=== PATIENT | female | born 1975 | race Caucasian/White ===

== ENCOUNTER 2020-06-01 13:18 | Outpatient (REF) | payer OTHER, SELFPAY ==
[2020-06-01 16:40] LABS: MANUAL DIFF FLAG NO
[2020-06-01 16:46] LABS: Basophils Absolute Auto 0.1 X10*3/uL (0.0-0.2); Basophils Percent Auto 0.4 % (0-2); Eosinophils Absolute Auto 0.4 X10*3/uL (0.0-0.4); Eosinophils Percent Auto 2.7 % (0-4); Hematocrit 39.7 % (37-47); Hemoglobin 12.3 g/dl (12.0-16.0); Imm Gran Abs Auto 0.14 X10*3/uL (0.00-0.03); Lymphocytes Absolute Auto 3.6 X10*3/uL (1.2-4.9); Lymphocytes Percent Auto 24.5 % (20-40); Mean Corpuscular Hemoglobin 25.7 pg (27.0-33.0); Mean Corpuscular Volume 83.1 fL (80-98); Mean Platelet Volume 9.4 fL (9.4-12.3); Monocytes Absolute Auto 0.9 X10*3/uL (0.1-1.2); Monocytes Percent Auto 6.4 % (2-11); Neutrophils Absolute Auto 9.5 X10*3/uL (2.0-8.3); Platelet Count 501 X10*3/uL (160-400); Red Blood Count 4.78 X10*6/uL (4.20-5.50); Red Cell Distribution Width 14.7 % (11.0-16.0); White Blood Count 14.6 X10*3/uL (4.8-10.8)
[2020-06-01 17:06] LABS: Alanine Aminotransferase 17 U/L (0-31); Anion Gap 15 (12-20); Aspartate Amino Transferase 19 U/L (5-31); Blood Urea Nitrogen 14 mg/dL (9-16); Calcium 9.6 mg/dL (8.4-10.2); Carbon Dioxide 27 mmol/L (22-29); Chloride 101 mmol/L (96-108); Cholesterol 205 mg/dL; Estimated Glomerular Filt Rate > 60; Glucose Fasting 85 mg/dL (60-99); HDL Cholesterol 54 mg/dL; LDL Cholesterol Calculated 114 mg/dl; Potassium 4.8 mmol/L (3.3-5.1); Sodium 138 mmol/L (135-145); Triglycerides 187 mg/dL
[2020-06-01 17:28] LABS: TSH reflex Free T4 1.56 uIU/mL (0.32-4.0)
== END 2020-06-01 13:19 | disposition home or self-care (01) ==
LOC: HO.HMGCLDS 13:18
PROVIDERS: PCP Internal Medicine; Visit Provider Internal Medicine
DX: G43.009 Migraine without aura, not intractable, without status migrainosus (principal); Z00.01 Encounter for general adult medical examination with abnormal findings; E78.2 Mixed hyperlipidemia; E66.01 Morbid (severe) obesity due to excess calories; F33.1 Major depressive disorder, recurrent, moderate; I10 Essential (primary) hypertension
CPT/HCPCS: 36415; 80048; 80061; 84443; 84450; 84460; 85025

== ENCOUNTER 2020-06-24 13:04 | Outpatient (REF) | payer OTHER, SELFPAY ==
--- NOTE | ~2020-06-24 | MM_ITS ---
EXAMINATION: MM SCREENING DIGITAL BREAST TOMOSYNTHESIS, BILATERAL CLINICAL INFORMATION: Screening. Asymptomatic. The lifetime risk of breast cancer based on the Tyrer-Cuzick Model is 18%. COMPARISON: Mammography: 08/08/2013, 05/14/2012 TECHNIQUE: Digital breast tomosynthesis is performed in both the craniocaudal and mediolateral oblique views along with computer-aided detection (CAD). Synthesized 2D images are generated from the tomosynthesis. FINDINGS: The breasts are heterogeneously dense, which may obscure small masses (ACR BI-RADS breast composition Category c). Breast tissue composition borders on average fibroglandular. Parenchymal pattern is similar to remote prior studies. There is no developing density or interval mass or architectural abnormality. No abnormal calcifications. The skin contours are smooth. MM/MM tomosynthesis screening BI IMPRESSION: No mammographic evidence of malignancy. ASSESSMENT: BI-RADS 1: Negative RECOMMENDATION: Routine annual mammography screening. This patient's information was entered into a reminder system with a target due date for their next mammogram.
== END 2020-06-24 13:05 | disposition home or self-care (01) ==
LOC: HO.MAMMO 13:04
PROVIDERS: PCP Internal Medicine; Visit Provider Internal Medicine
DX: Z12.31 Encounter for screening mammogram for malignant neoplasm of breast (principal)
CPT/HCPCS: 77063; 77067

== ENCOUNTER 2021-11-22 12:23 | Outpatient (REF) | payer OTHER, SELFPAY ==
--- NOTE | ~2021-11-22 | MM_ITS ---
EXAMINATION: MM SCREENING DIGITAL BREAST TOMOSYNTHESIS, BILATERAL CLINICAL INFORMATION: Screening. Asymptomatic. The lifetime risk of breast cancer based on the Tyrer-Cuzick Model is 15%. COMPARISON: Mammography: 06/24/2020, 08/08/2013 TECHNIQUE: Digital breast tomosynthesis is performed in both the craniocaudal and mediolateral oblique views along with computer-aided detection (CAD). Synthesized 2D images are generated from the tomosynthesis. FINDINGS: The breasts are heterogeneously dense, which may obscure small masses (ACR BI-RADS breast composition Category c). There are no significant masses, abnormal calcifications, or other abnormalities. Parenchymal pattern is similar to prior studies. There is no developing density or architectural abnormality. The axilla and skin contours are unremarkable. No significant changes. MM/MM tomosynthesis screening BI IMPRESSION: No mammographic evidence of malignancy. ASSESSMENT: BI-RADS 1: Negative RECOMMENDATION: Routine annual mammography screening. This patient's information was entered into a reminder system with a target due date for their next mammogram.
== END 2021-11-22 12:24 | disposition home or self-care (01) ==
LOC: HO.MAMMO 12:23
PROVIDERS: PCP Internal Medicine; Visit Provider Internal Medicine
DX: Z12.31 Encounter for screening mammogram for malignant neoplasm of breast (principal)
CPT/HCPCS: 77063; 77067

== ENCOUNTER 2022-04-20 13:11 | Outpatient (REF) | payer OTHER, SELFPAY ==
[2022-04-20 14:50] LABS: Alanine Aminotransferase 31 U/L (0-31); Anion Gap 13 (12-20); Aspartate Amino Transferase 30 U/L (5-31); Blood Urea Nitrogen 11 mg/dL (9-16); Calcium 9.5 mg/dL (8.4-10.2); Carbon Dioxide 28 mmol/L (22-29); Chloride 101 mmol/L (96-108); Cholesterol 230 mg/dL; Estimated Glomerular Filt Rate > 60; Glucose Fasting 89 mg/dL (60-99); HDL Cholesterol 43 mg/dL; LDL Cholesterol Calculated 123 mg/dl; Potassium 4.3 mmol/L (3.3-5.1); Sodium 138 mmol/L (135-145); Triglycerides 322 mg/dL
[2022-04-20 14:55] LABS: Vitamin D 25-OH Total 28.2 ng/mL (>30)
== END 2022-04-20 13:12 | disposition home or self-care (01) ==
LOC: HO.HMGCLDS 13:11
PROVIDERS: Visit Provider Internal Medicine
DX: Z00.01 Encounter for general adult medical examination with abnormal findings (principal); E66.01 Morbid (severe) obesity due to excess calories; F33.1 Major depressive disorder, recurrent, moderate; G43.009 Migraine without aura, not intractable, without status migrainosus; E78.2 Mixed hyperlipidemia; E55.9 Vitamin D deficiency, unspecified
CPT/HCPCS: 36415; 80048; 80061; 82306; 84450; 84460

== ENCOUNTER 2022-05-18 14:05 | Outpatient (REF) | payer OTHER, SELFPAY ==
[2022-05-23 04:08] LABS: HPV mRNA E6/E7 rflx Not Detected (Not Detected)
== END 2022-05-18 14:06 | disposition home or self-care (01) ==
LOC: HO.LNP 14:05
PROVIDERS: Visit Provider Internal Medicine
DX: Z12.4 Encounter for screening for malignant neoplasm of cervix (principal); Z11.51 Encounter for screening for human papillomavirus (HPV)
CPT/HCPCS: 87624; 88142

== ENCOUNTER 2022-11-14 11:09 | Outpatient (REF) | payer OTHER, SELFPAY ==
[2022-11-14 13:38] LABS: Alanine Aminotransferase 26 U/L (0-31); Aspartate Amino Transferase 27 U/L (5-31); Cholesterol 188 mg/dL (<200); HDL Cholesterol 41 mg/dL (>40); LDL Cholesterol Calculated 119 mg/dL (<100); Triglycerides 140 mg/dL (<150)
[2022-11-14 13:43] LABS: Vitamin D 25-OH Total 66.1 ng/mL (>30)
== END 2022-11-14 11:10 | disposition home or self-care (01) ==
LOC: HO.HMGCLDS 11:09
PROVIDERS: PCP Internal Medicine; Visit Provider Internal Medicine
DX: E78.2 Mixed hyperlipidemia (principal); E55.9 Vitamin D deficiency, unspecified
CPT/HCPCS: 36415; 80061; 82306; 84450; 84460

== ENCOUNTER 2022-11-16 10:53 | Outpatient (AMB) | payer OTHER, SELFPAY ==
[2022-11-16 10:55] VITALS: BP 130/72; PULSE 90; O2SAT 97; BMI 42.8
--- NOTE | 2022-11-16 10:55 | A.OFFPC_ITS ---
Vital Signs 11/16/22 10:55 Height 5 ft 2 in Weight 234 lb BMI 42.8 BP 130/72 Blood Pressure Location Lt brachial Position Sitting Pulse 90 Pulse Source Pulse Oximeter Pulse Oximetry (%) 97 Oxygen Delivery Method Room Air Intake Visit Reasons: 6m f/u lipids, vit d, anxiety/depression Intake Note: patient is here today for her 6m f/u Allergies Sulfa (Sulfonamide Antibiotics) Allergy (Unknown, Verified 11/16/22 11:09) unknown trimethoprim [From BACTRIM] Allergy (Unknown, Verified 11/16/22 11:09) UNKNOWN Medication List - Last Reconciled 11/16/22 by Neelam Tom MD atorvastatin 10 mg PO DAILY buspirone 5 mg PO BID cholecalciferol (vitamin D3) 1,250 mcg PO QWEEK 3 months fluoxetine 20 mg PO DAILY lorazepam 0.5 mg PO DAILY PRN naproxen sodium 550 mg PO Q12H PRN omega-3 acid ethyl esters (Lovaza) 2 caps PO BID 30 days quetiapine 50 mg PO BEDTIME sumatriptan succinate 50 mg PO ONCE PRN Tobacco use date assessed: 11/16/22 Dental Screening Dental Screen Date: 11/16/22 Did you have a dental visit in the last 12 months?: Yes Did you have a dental problem in the last 6 months where you did not have access to dental care?: No Was dental information given to patient?: Patient has dentist HPI 6m f/u lipids, vit d, anxiety/depression HPI Details 46-year-old lady here today for follow-u p on her lipids and vitamin-D level. He has been taking atorvastatin 10 mg daily and added Lovaza 2 capsules twice a day, with marked improvement in her triglycerides and the rest of her lipid levels. And vitamin-D is also within normal limits, after she was prescribed vitamin-D high-dose for to be taken once a week for the next 3 months. She has depression with anxiety, currently on as needed lorazepam, which she usually takes a week prior to her cycle, started on buspirone 5 mg taken 1 tablet twice a day and fluoxetine 20 mg daily which she feels is not enough of stress in her life right now taking care of her mother who has a lot of health issues. She recently joined the [employer] for weight loss right,[facility] in [place] and currently on Mounjaro, which she started taking 08/28/2022. Has lost approximately 12 lb since last visit. Patient up-to-date with her mammogram and cervical cancer screening, as well as her colonoscopy. Had recent fasting labs done which showed marked improvement in her lipids, vitamin-D now within normal limits. Complains of recurrent tender lesions appearing on axillary areas and suprapubic area, [facility] Medical History Suppurative hidradenitis Chronic heartburn Anxiety and depression Vulval hidradenitis suppurativa Major depressive disorder, recurrent, in partial remission Cystic acne vulgaris Furunculosis of abdominal wall Intermittent lightheadedness Sleeping difficulty Excessive daytime sleepiness Morbid obesity Migraine Mixed dyslipidemia Surgical History History of appendectomy Family History Father Diabetes mellitus Bladder cancer HTN (hypertension) Mother Lung cancer HTN (hypertension) Brother No problems noted. Maternal Grandmother Lung cancer Breast cancer Paternal Grandmother Lung cancer Social History Housing: House Alcohol intake: current Patient Tobacco Use Status: Never used Tobacco e-Cigarette/Vaping Use: Never Used Second Hand Smoke Exposure: Yes service: No Current occupational status: employed Cognitive needs: No Hearing needs: No Vision needs: No Questionnaire Thrive Questionnaire Date Thrive assessed: 04/25/21 AUDIT C Alcohol Use Questionnaire (AUDIT-C) 1. How often do you have a drink containing alcohol?: Never Total Score: 0 KIP-7 AMB Questionnaire KIP-7 Date KIP - 7 assessed: 11/16/22 Feeling nervous, anxious, or on edge: 1 = Several days Not being able to stop or control worryin = Several days Worrying too much about different things: 1 = Several days Trouble relaxin = Several days Being so restless that it is hard to sit still: 0 = Not at all Becoming easily annoyed or irritable: 0 = Not at all Feeling afraid as if something awful might happen: 0 = Not at all Total KIP-7 score (0-4 normal; 5-9 mild; 10-14 moderate; 15-21 severe): 4 Source: Developed by Drs. Anatoly Tijerina, Tracey Faust, Vaibhav Butler and colleagues, with an educational savannah from [email or web address]. KIP-7 Assessment Billing KIP-7 Assessment Tool: KIP-7 Assessment 19394 Review of Systems Const Denies headache(s), Denies weakness and Reports weight loss Eyes Reports no additional complaints and Denies change in vision ENT Denies dysphagia, Denies dizziness, Denies dry mouth, Denies headache(s), Denies nasal congestion, Denies post nasal drip and Denies sore throat Card Denies chest pain, Denies irregular heart rhythm, Denies lightheadedness and Denies dyspnea Resp Denies cough, Denies dyspnea and Denies wheezing GI Denies abdominal pain, Denies change in bowel habits, Denies dysphagia, Denies heartburn and Denies nausea Reports no additional complaints and Reports dysmenorrhea (takes naproxen prn) Musc Denies abnormal gait and Denies tingling Skin/Breast Reports as per HPI, Denies breast pain, Denies breast mass and Denies rash Neuro Denies abnormal gait, Denies dizziness, Denies headache(s), Denies Sensory deficit (Neuro), Denies tingling and Denies weakness Psych Reports as per HPI Endo Reports no additional complaints Carlos/Lymph Reports no additional complaints Aller/Immun Denies seasonal rhinorrhea and Denies wheezing Physical exam (Primary Care) Vital Signs: Last Vital Signs Pulse 90 11/16/22 10:55 BP 130/72 11/16/22 10:55 Pulse Ox 97 11/16/22 10:55 Oxygen Delivery Method Room Air 11/16/22 10:55 BMI result Body Mass Index 42.8 Tobacco/Smoking Status: Tobacco use Status Tobacco use date assessed 11/16/22 11/16/22 10:58 Patient Tobacco Use Status Never used Tobacco 11/16/22 10:58 e-Cigarette/Vaping Use Never Used 11/16/22 10:58 Thrive Assessment: Date of Thrive Assessment Date Thrive assessed 04/25/21 11/16/22 10:58 Const General: cooperative, comfortable, no acute distress and alert Limitations: no limitations HENMT Mouth: moist mucous membranes Neck Other: Supple, no lymphadenopathy, thyroid gland not palpable Resp Effort & Inspection: normal respiratory effort and able to speak in complete sentences Auscultation: clear to auscultation bilaterally Cardio Rate: regular rate Rhythm: regular rhythm Heart sounds: S1 normal heart sound present and S2 normal heart sound present GI Inspection: Yes normal to inspection Palpation (GI): Soft to palpation, nontender, no guarding and no masses Auscultation: normal bowel sounds Back/Spine/Pelvis Back: No back tenderness Skin Other: Tender nodular lesions on axilla not want the right and erythematous nodular lesion on suprapubic area, no active drainage Neuro Sensory Exam: No Sensory deficit (Neuro) Extrem General: Yes full ROM, Yes no joint enlargement, Yes no pedal edema and Yes normal gait Psych Appearance: grossly normal and well kempt Mental Status: mental status grossly normal Speech and movement: Normal speech and movement present Affect: normal affect Attitude: cooperative Thought process: Normal thought process present Thought content: Normal thought content present Results Reviewed Results Reviewed: ENTERED: 11/14/22-[address]: ORDERED: AST, ALT, Lipid Panel, Vitamin D 25-OH Test Result Flag Reference Site AST (GOT) 27 5-31 U/L ALT (GPT) 26 0-31 U/L Triglyceride 140 <150 mg/dL Desirable Triglyceride: less than 150 mg/dL Borderline High Triglyceride 150-199 mg/dL High Triglyceride: 200-499 mg/dL Very High Triglyceride: greater than or equal to 5OO mg/dL Cholesterol 188 <200 mg/dL Desirable Cholesterol: less than 200 mg/dL Borderline High Cholesterol: 200-239 mg/dL High Cholesterol: greater than 239 mg/dL LDL Calculated 119 H <100 mg/dL Desirable LDL: less than 100 mg/dL Near Optimal/Above Optimal LDL: 110-129 mg/dL Borderline High LDL: 130-159 mg/dL High LDL: 160-189 mg/dL Very High LDL: greater than or equal to 190 mg/dL HDL 41 >40 mg/dL Desirable HDL: greater than 40 mg/dL Note: This HDL assay may give artificially low results in patients with liver disease. Vit D 25-OH Tot 66.1 >30 ng/mL Health Based Reference Values* < 20 ng/mL Deficient 20-30 ng/mL Insufficient > 30 ng/mL Sufficient Assessment and Plan Assessment & Plan (1) Suppurative hidradenitis: Code(s): L73.2 - Hidradenitis suppurativa Plan: Prescription sent for doxycycline 100 mg per capsule to take 1 every 12 hours for 10 days. Referred to dermatology for further evaluation management (2) Anxiety and depression: Code(s): F41.9 - Anxiety disorder, unspecified; F32.A - Depression, unspecified Plan: Increase buspirone to 10 mg 1 tab twice a day, refill sent for lorazepam to take only as needed for acute anxiety attacks, continue with fluoxetine, follow-up in January 2023 (3) Mixed dyslipidemia: Code(s): E78.2 - Mixed hyperlipidemia Plan: Marked improvement in her lipid panel. Continue on atorvastatin, currently on Mounjaro, which has been helping curb her appetite. Advised to continue doing regular exercise, to continue with weight loss. Repeat lipid panel in January 2023 together with liver enzymes. Orders: Orders Lipid Panel 01/19/23 E66.01 - Morbid (severe) obesity due to excess calories, E78.2 - Mixed hyperlipidemia, F32.A - Depression, unspecified, F41.9 - Anxiety disorder, unspecified, L73.2 - Hidradenitis suppurativa Alanine Aminotransferase 01/19/23 E66.01 - Morbid (severe) obesity due to excess calories, E78.2 - Mixed hyperlipidemia, F32.A - Depression, unspecified, F41.9 - Anxiety disorder, unspecified, L73.2 - Hidradenitis suppurativa Aspartate Amino Transferase 01/19/23 E66.01 - Morbid (severe) obesity due to excess calories, E78.2 - Mixed hyperlipidemia, F32.A - Depression, unspecified, F41.9 - Anxiety disorder, unspecified, L73.2 - Hidradenitis suppurativa Vitamin D 25-OH Total 01/19/23 E66.01 - Morbid (severe) obesity due to excess calories, E78.2 - Mixed hyperlipidemia, F32.A - Depression, unspecified, F41.9 - Anxiety disorder, unspecified, L73.2 - Hidradenitis suppurativa Basic Metabolic Panel Fasting 01/19/23 E66.01 - Morbid (severe) obesity due to excess calories, E78.2 - Mixed hyperlipidemia, F32.A - Depression, unspecified, F41.9 - Anxiety disorder, unspecified, L73.2 - Hidradenitis suppurativa Referrals Dermatology Referral L73.2 - Hidradenitis suppurativa Medications: New doxycycline hyclate 100 mg PO BID 10 days 20 caps 0RF L73.2 - Hidradenitis suppurativa Changed From buspirone 5 mg PO BID 60 tabs 5RF F32.A - Depression, unspecified, F41.9 - Anxiety disorder, unspecified To buspirone 5 mg (1/2 x 10 mg) PO BID 20 tabs 5RF F32.A - Depression, unspecified, F41.9 - Anxiety disorder, unspecified Refilled lorazepam 0.5 mg PO DAILY PRN 20 tabs 0RF anxiety Coding Level of Care Code Est Pt Level 4 (31427) Diagnoses Suppurative hidradenitis L73.2 Anxiety and depression F41.9; F32.A Mixed dyslipidemia E78.2 Additional Codes KIP-7 Assessment Billing - KIP-7 Assessment Tool: KIP-7 Assessment 56733 ([id number])
== END 2022-11-16 11:31 | disposition home or self-care (01) ==
PROVIDERS: Visit Provider Internal Medicine
DX: L73.2 Hidradenitis suppurativa (principal); F41.9 Anxiety disorder, unspecified; F32.A Depression, unspecified; E78.2 Mixed hyperlipidemia
CPT/HCPCS: 99214

== ENCOUNTER → 2023-01-03 15:15 | Outpatient (BNV) | payer OTHER, SELFPAY | PROVIDERS: PCP Internal Medicine; Visit Provider Radiology Diagnostic Radiology | DX: Z12.31 Encounter for screening mammogram for malignant neoplasm of breast (principal) | CPT/HCPCS: 77063; 77067 ==

== ENCOUNTER 2023-01-03 15:17 | Outpatient (REF) | payer OTHER, SELFPAY ==
--- NOTE | ~2023-01-03 | MM_ITS ---
EXAMINATION: MM SCREENING DIGITAL BREAST TOMOSYNTHESIS, BILATERAL CLINICAL INFORMATION: Screening. Asymptomatic. COMPARISON: Mammography: This study is compared with prior exams dating back to 2013. TECHNIQUE: Digital breast tomosynthesis is performed in both the craniocaudal and mediolateral oblique views along with computer-aided detection (CAD). Synthesized 2D images are generated from the tomosynthesis. FINDINGS: The breasts are heterogeneously dense, which may obscure small masses (ACR BI-RADS breast composition Category c). There are no significant masses, abnormal calcifications, or other abnormalities. MM/MM tomosynthesis screening BI IMPRESSION: No mammographic evidence of malignancy. ASSESSMENT: BI-RADS BI-RADS 1 - Negative RECOMMENDATION: Routine annual mammography screening. 1 year F/U This examination should not preclude the clinical evaluation of a suspicious palpable abnormality. This patient's information was entered into a reminder system with a target due date for their next mammogram.
== END 2023-01-03 15:18 | disposition home or self-care (01) ==
LOC: HO.MAMMO 15:17
PROVIDERS: PCP Internal Medicine; Visit Provider Internal Medicine
DX: Z12.31 Encounter for screening mammogram for malignant neoplasm of breast (principal)
CPT/HCPCS: 77063; 77067

== ENCOUNTER 2023-03-12 15:03 | Outpatient (REF) | payer OTHER, SELFPAY ==
[2023-03-12 16:53] LABS: Alanine Aminotransferase 23 U/L (0-31); Anion Gap 16 (12-20); Aspartate Amino Transferase 18 U/L (5-31); Blood Urea Nitrogen 13 mg/dL (9-16); Calcium 9.3 mg/dL (8.4-10.2); Carbon Dioxide 25 mmol/L (22-29); Chloride 105 mmol/L (96-108); Cholesterol 196 mg/dL (<200); Estimated Glomerular Filt Rate > 60; Glucose Fasting 86 mg/dL (60-99); HDL Cholesterol 43 mg/dL (>40); LDL Cholesterol Calculated 120 mg/dL (<100); Potassium 4.5 mmol/L (3.3-5.1); Sodium 141 mmol/L (135-145); Triglycerides 168 mg/dL (<150)
[2023-03-12 17:00] LABS: Vitamin D 25-OH Total 59.3 ng/mL (>30)
== END 2023-03-12 15:04 | disposition home or self-care (01) ==
LOC: HO.HMGCLDS 15:03
PROVIDERS: PCP Internal Medicine; Visit Provider Internal Medicine
DX: L73.2 Hidradenitis suppurativa (principal); E66.01 Morbid (severe) obesity due to excess calories; E78.2 Mixed hyperlipidemia; F41.9 Anxiety disorder, unspecified; F32.A Depression, unspecified
CPT/HCPCS: 36415; 80048; 80061; 82306; 84450; 84460

== ENCOUNTER 2023-03-22 13:34 | Outpatient (AMB) | payer OTHER, SELFPAY ==
[2023-03-22 13:40] VITALS: BP 122/74; PULSE 83; O2SAT 98; BMI 41.5
--- NOTE | 2023-03-22 13:40 | A.OFFPC_ITS ---
Vital Signs 03/22/23 13:40 Height 5 ft 2 in Weight 227 lb BMI 41.5 BP 122/74 Blood Pressure Location Lt brachial Position Sitting Pulse 83 Pulse Source Pulse Oximeter Pulse Oximetry (%) 98 Oxygen Delivery Method Room Air Intake Visit Reasons: 3M. F/U- Lipids/Anxiety/Depression Intake Note: Pt is here today for her f/u lipids, anxiety and depression Allergies Sulfa (Sulfonamide Antibiotics) Allergy (Unknown, Verified 03/22/23 13:51) unknown trimethoprim [From BACTRIM] Allergy (Unknown, Verified 03/22/23 13:51) UNKNOWN Medication List - Last Reconciled 03/22/23 by Neelam Tom MD atorvastatin 10 mg PO DAILY buspirone 10 mg PO BID cholecalciferol (vitamin D3) 1,250 mcg PO QWEEK 3 months fluoxetine 20 mg PO DAILY lorazepam 0.5 mg PO DAILY PRN naproxen sodium 550 mg PO Q12H PRN omega-3 acid ethyl esters (Lovaza) 2 caps PO BID 30 days quetiapine 50 mg PO BEDTIME sumatriptan succinate 50 mg PO ONCE PRN tirzepatide (Mounjaro) 5 mg subcut QWEEK Tobacco use date assessed: 03/22/23 Dental Screening Dental Screen Date: 03/22/23 Did you have a dental visit in the last 12 months?: Yes Did you have a dental problem in the last 6 months where you did not have access to dental care?: No Was dental information given to patient?: Patient has dentist HPI 3M. F/U- Lipids/Anxiety/Depression HPI Details 47-year-old lady here today for follow-u p on her hyperlipidemia and anxiety/ depression. Currently taking atorvastatin 10 mg daily, fluoxetine 20 mg daily, buspirone 10 mg 1 tablet twice a day, quetiapine 50 mg at bedtime and lorazepam as needed for acute attacks of anxiety. Has been feeling well, with mood swings controlled on present treatment. Currently getting weekly injections of Mounjaro , which she gets from [employer], for weight loss. Patient states that she has lost about 25 lb in the last 6 month. Denies any side effects from the medication. Complains of painful nodular lesions in her left axillary, no drainage, present for the last week.. [facility] Medical History (Updated 03/23/23 @ 03:18 by Neelam Tom MD) Chronic heartburn Anxiety and depression Vulval hidradenitis suppurativa Major depressive disorder, recurrent, in partial remission Cystic acne vulgaris Furunculosis of abdominal wall Intermittent lightheadedness Sleeping difficulty Excessive daytime sleepiness Morbid obesity Migraine Mixed dyslipidemia Surgical History History of appendectomy Family History Father Diabetes mellitus Bladder cancer HTN (hypertension) Mother Lung cancer HTN (hypertension) Brother No problems noted. Maternal Grandmother Lung cancer Breast cancer Paternal Grandmother Lung cancer Social History Housing: House Alcohol intake: current Patient Tobacco Use Status: Never used Tobacco e-Cigarette/Vaping Use: Never Used Second Hand Smoke Exposure: Yes service: No Current occupational status: employed Cognitive needs: No Hearing needs: No Vision needs: Yes Questionnaire PHQ-9 Over the last 2 weeks, how often have you been bothered by any of the following problems? 1. Little interest or pleasure in doing things: not at all 2. Feeling down, depressed, or hopeless: not at all 3. Trouble falling or staying asleep, or sleeping too much: not at all 4. Feeling tired or having little energy: not at all 5. Poor appetite or overeating: not at all 6. Feeling bad about yourself - or that you are a failure or have let yourself or your family down: not at all 7. Trouble concentrating on things, such as reading the newspaper or watching television: not at all 8. Moving or speaking so slowly that other people could have noticed. Or the opposite - being so fidgety or restless that you have been moving around a lot more than usual: not at all 9. Thoughts that you would be better off or of hurting yourself in some way: not at all Total score: 0 Depression Screening Interpretation: Negative Depression Screening Done: Yes 55732 - PHQ-9 Billing: Yes Source: Developed by Drs. Anatoly Tijerina, Tracey Faust, Vaibhav Butler and colleagues, with an educational savannah from [employer]. Thrive Questionnaire Date Thrive assessed: 03/22/23 I am a: Patient What is your living situation today?: I have a steady place to live Within the past 12 months, did the food you bought not last and you didn't have the money to get more?: Never true Within the past 12 months, did you worry whether your food would run out before you got money to buy more?: Never true Do you have trouble paying for medicines?: No Do you have trouble getting transportation to medical appointments?: No Do you have trouble paying your heating and electricity bill?: No Do you have trouble taking care of your child, family member or friend?: No Do you have trouble with day-to-day activities such as bathing, preparing meals, shopping, managing finances, etc.?: No Are you currently unemployed and looking for a job?: No Are you interested in more education?: No THRIVE Score: 0 AUDIT C Alcohol Use Questionnaire (AUDIT-C) 1. How often do you have a drink containing alcohol?: Monthly or less 2. How many drinks containing alcohol do you have on a typical day when you are drinking?: 1 or 2 3. How often do you have six or more drinks on one occasion?: Never Total Score: 1 KIP-7 AMB Questionnaire KIP-7 Date KIP - 7 assessed: 03/22/23 Feeling nervous, anxious, or on edge: 1 = Several days Not being able to stop or control worryin = Not at all Worrying too much about different things: 1 = Several days Trouble relaxin = Several days Being so restless that it is hard to sit still: 1 = Several days Becoming easily annoyed or irritable: 1 = Several days Feeling afraid as if something awful might happen: 0 = Not at all Total KIP-7 score (0-4 normal; 5-9 mild; 10-14 moderate; 15-21 severe): 5 Source: Developed by Drs. Anatoly Tijerina, Tracey Faust, Vaibhav Butler and colleagues, with an educational savannah from [employer]. KIP-7 Assessment Billing KIP-7 Assessment Tool: KIP-7 Assessment 69762 Review of Systems Const Denies headache(s) and Denies weakness Eyes Reports no additional complaints and Denies change in vision ENT Denies dysphagia, Denies dizziness, Denies dry mouth, Denies headache(s), Denies nasal congestion, Denies post nasal drip and Denies sore throat Card Denies chest pain, Denies irregular heart rhythm, Denies lightheadedness and Denies dyspnea Resp Denies cough, Denies dyspnea and Denies wheezing GI Denies abdominal pain, Denies change in bowel habits, Denies dysphagia, Denies heartburn and Denies nausea Reports no additional complaints and Reports dysmenorrhea (takes naproxen prn) Musc Denies abnormal gait and Denies tingling Skin/Breast Reports as per HPI, Denies breast pain, Denies breast mass and Denies rash Neuro Denies abnormal gait, Denies dizziness, Denies headache(s), Denies Sensory deficit (Neuro), Denies tingling and Denies weakness Psych Reports as per HPI Endo Reports no additional complaints Carlos/Lymph Reports no additional complaints Aller/Immun Denies seasonal rhinorrhea and Denies wheezing Physical exam (Primary Care) Vital Signs: Last Vital Signs Pulse 83 03/22/23 13:40 BP 122/74 03/22/23 13:40 Pulse Ox 98 03/22/23 13:40 Oxygen Delivery Method Room Air 03/22/23 13:40 BMI result Body Mass Index 41.5 Tobacco/Smoking Status: Tobacco use Status Tobacco use date assessed 03/22/23 03/22/23 13:46 Patient Tobacco Use Status Never used Tobacco 03/22/23 13:46 e-Cigarette/Vaping Use Never Used 03/22/23 13:46 PHQ-9: PHQ-9 Score PHQ-9: Total score 0 03/22/23 13:52 Depression Screening Interpretation: Negative Thrive Assessment: Date of Thrive Assessment Date Thrive assessed 03/22/23 03/22/23 13:52 Const General: cooperative, comfortable, no acute distress and alert Limitations: no limitations HENMT Mouth: moist mucous membranes Neck Other: Supple, no lymphadenopathy, thyroid gland not palpable Resp Effort & Inspection: normal respiratory effort and able to speak in complete sentences Auscultation: clear to auscultation bilaterally Cardio Rate: regular rate Rhythm: regular rhythm Heart sounds: S1 normal heart sound present and S2 normal heart sound present GI Inspection: Yes normal to inspection Palpation (GI): Soft to palpation, nontender, no guarding and no masses Auscultation: normal bowel sounds Back/Spine/Pelvis Back: No back tenderness Skin Other: Firm erythematous tender, Nodular lesions on left axillary area, no drainage Neuro Sensory Exam: No Sensory deficit (Neuro) Extrem General: Yes full ROM, Yes no joint enlargement, Yes no pedal edema and Yes normal gait Psych Appearance: grossly normal and well kempt Mental Status: mental status grossly normal Speech and movement: Normal speech and movement present Affect: normal affect Attitude: cooperative Thought process: Normal thought process present Thought content: Normal thought content present Results Reviewed Results Reviewed: ENTERED: 03/12/23-[address] [facility] [address]: ORDERED: Met Prof Fast, AST, ALT, Lipid Panel, Vitamin D 25-OH Test Result Flag Reference Sodium 141 135-145 mmol/L Potassium 4.5 3.3-5.1 mmol/L CL 105 96-108 mmol/L CO2 25 22-29 mmol/L Gap 16 12-20 BUN 13 9-16 mg/dL Creat 0.74 0.5-1.4 mg/dL EGFR > 60 NOTE: For -Honduran individuals, multiply the result by 1.210. Chronic Kidney Disease: Estimated GFR < 60 mL/min/1.73m2 Severe Kidney Disease: Estimated GFR < 15 mL/min/1.73m2 FBS 86 60-99 mg/dL CA 9.3 8.4-10.2 mg/dL AST (GOT) 18 5-31 U/L ALT (GPT) 23 0-31 U/L Triglyceride 168 H <150 mg/dL Desirable Triglyceride: less than 150 mg/dL Borderline High Triglyceride 150-199 mg/dL High Triglyceride: 200-499 mg/dL Very High Triglyceride: greater than or equal to 5OO mg/dL Cholesterol 196 <200 mg/dL Desirable Cholesterol: less than 200 mg/dL Borderline High Cholesterol: 200-239 mg/dL High Cholesterol: greater than 239 mg/dL LDL Calculated 120 H <100 mg/dL Desirable LDL: less than 100 mg/dL Near Optimal/Above Optimal LDL: 110-129 mg/dL Borderline High LDL: 130-159 mg/dL High LDL: 160-189 mg/dL Very High LDL: greater than or equal to 190 mg/dL HDL 43 >40 mg/dL Desirable HDL: greater than 40 mg/dL Note: This HDL assay may give artificially low results in patients with liver disease. Vit D 25-OH Tot 59.3 >30 ng/mL Health Based Reference Values* < 20 ng/mL Deficient 20-30 ng/mL Insufficient > 30 ng/mL Sufficient Assessment and Plan Assessment & Plan (1) Mixed dyslipidemia: Code(s): E78.2 - Mixed hyperlipidemia Plan: Reviewed recent fasting lipid profile with patient with levels at goal . Continue with atorvastatin 10 mg daily and [place] 3 fatty acid supplement , in addition to adherence to low-cholesterol diet and regular exercise, at least 30 minutes 3 to 4 times a week. Advised patient to make healthy food choices, eat more fruits, vegetables, whole grains, wild caught fish and low-fat dairy. Limit amount of meat and fried or fatty food products, as well as processed foods and fast foods. (2) Hidradenitis suppurativa of left axilla: Code(s): L73.2 - Hidradenitis suppurativa Plan: Prescription sent for doxycycline 100 mg per capsule to take 1 every 12 hours for 10 days. (3) Anxiety and depression: Code(s): F41.9 - Anxiety disorder, unspecified; F32.A - Depression, unspecified Plan: Stable controlled on present treatment Orders: Orders Aspartate Amino Transferase 3 Months E66.01 - Morbid (severe) obesity due to excess calories, E78.2 - Mixed hyperlipidemia, F32.A - Depression, unspecified, F41.9 - Anxiety disorder, unspecified Vitamin D 25-OH Total 3 Months E66.01 - Morbid (severe) obesity due to excess calories, E78.2 - Mixed hyperlipidemia, F32.A - Depression, unspecified, F41.9 - Anxiety disorder, unspecified Lipid Panel 3 Months E66.01 - Morbid (severe) obesity due to excess calories, E78.2 - Mixed hyperlipidemia, F32.A - Depression, unspecified, F41.9 - Anxiety disorder, unspecified Alanine Aminotransferase 3 Months E66.01 - Morbid (severe) obesity due to excess calories, E78.2 - Mixed hyperlipidemia, F32.A - Depression, unspecified, F41.9 - Anxiety disorder, unspecified Medications: New doxycycline monohydrate 100 mg PO BID 20 caps 0RF Coding Level of Care Code Est Pt Level 4 (30533) Diagnoses Mixed dyslipidemia E78.2 Hidradenitis suppurativa of left axilla L73.2 Anxiety and depression F41.9; F32.A Additional Codes KIP-7 Assessment Billing - KIP-7 Assessment Tool: KIP-7 Assessment [id number] ([id number])
== END 2023-03-22 16:04 | disposition home or self-care (01) ==
PROVIDERS: PCP Internal Medicine; Visit Provider Internal Medicine
DX: E78.2 Mixed hyperlipidemia (principal); L73.2 Hidradenitis suppurativa; F41.9 Anxiety disorder, unspecified; F32.A Depression, unspecified
CPT/HCPCS: 99214

== ENCOUNTER → 2024-02-25 16:00 | Outpatient (BNV) | payer OTHER, SELFPAY | PROVIDERS: PCP Internal Medicine; Visit Provider Internal Medicine | DX: Z12.31 Encounter for screening mammogram for malignant neoplasm of breast (principal) | CPT/HCPCS: 77063; 77067 ==

== ENCOUNTER 2024-02-25 16:01 | Outpatient (REF) | payer OTHER, SELFPAY ==
--- NOTE | ~2024-02-25 | MM_ITS ---
EXAMINATION: MM SCREENING DIGITAL BREAST TOMOSYNTHESIS, BILATERAL CLINICAL INFORMATION: Screening. Asymptomatic. COMPARISON: Mammography: Comparison is made with available priors TECHNIQUE: Digital breast mammography with tomosynthesis is performed in both the craniocaudal and mediolateral oblique views along with computer-aided detection (CAD). FINDINGS: The breasts are extremely dense, which lowers the sensitivity of mammography (ACR BI-RADS breast composition Category d). There are no significant masses, abnormal calcifications, or other abnormalities. MM/MM tomosynthesis screening BI IMPRESSION: No mammographic evidence of malignancy. ASSESSMENT: BI-RADS BI-RADS 1 - Negative RECOMMENDATION: Routine annual mammography screening. 1 year F/U This examination should not preclude the clinical evaluation of a suspicious palpable abnormality. This patient's information was entered into a reminder system with a target due date for their next mammogram. Electronically signed by: Angie Wu DO 02/27/2024 01:29 PM [email or web address]
== END 2024-02-25 16:02 | disposition home or self-care (01) ==
LOC: HO.MAMMO 16:01
PROVIDERS: PCP Internal Medicine; Visit Provider Internal Medicine
DX: Z12.31 Encounter for screening mammogram for malignant neoplasm of breast (principal)
CPT/HCPCS: 77063; 77067

== ENCOUNTER 2024-03-31 12:43 | Outpatient (REF) | payer OTHER, SELFPAY ==
[2024-03-31 16:40] LABS: Alanine Aminotransferase 14 U/L (0-31); Aspartate Amino Transferase 28 U/L (5-31); Cholesterol 224 mg/dL (<200); HDL Cholesterol 42 mg/dL (>40); LDL Cholesterol Calculated 131 mg/dL (<100); Triglycerides 258 mg/dL (<150)
[2024-03-31 16:55] LABS: Vitamin D 25-OH Total 64.4 ng/mL (>30)
== END 2024-03-31 12:44 | disposition home or self-care (01) ==
LOC: HO.HMGCLDS 12:43
PROVIDERS: PCP Internal Medicine; Visit Provider Internal Medicine
DX: E78.2 Mixed hyperlipidemia (principal); E66.01 Morbid (severe) obesity due to excess calories; F41.9 Anxiety disorder, unspecified; F32.A Depression, unspecified
CPT/HCPCS: 36415; 80061; 82306; 84450; 84460

== ENCOUNTER 2024-04-03 08:26 | Outpatient (AMB) | payer OTHER, SELFPAY ==
[2024-04-03 08:31] VITALS: BP 130/80; PULSE 87; RESP 16; TEMP 36.8; O2SAT 98; BMI 37.7
--- NOTE | 2024-04-03 08:31 | MHC.PC.OV ---
Vital Signs 04/03/24 08:31 Height 5 ft 2 in Weight 206 lb BMI 37.7 BP 130/80 Blood Pressure Location Rt brachial Position Sitting Respiration 16 Pulse 87 Pulse Source Pulse Oximeter Temp 98.3 F Temp Source Oral Pulse Oximetry (%) 98 Oxygen Delivery Method Room Air Intake Visit Reasons: Meds review Intake Note: Pt is here today c/o anxiety Allergies Sulfa (Sulfonamide Antibiotics) Allergy (Unknown, Verified 04/03/24 08:38) unknown trimethoprim [From BACTRIM] Allergy (Unknown, Verified 04/03/24 08:38) UNKNOWN Medication List - Last Reconciled 04/03/24 by Neelam Tom MD atorvastatin 10 mg PO DAILY cholecalciferol (vitamin D3) 1,250 mcg PO QWEEK 3 months fluoxetine 20 mg PO DAILY lorazepam 0.5 mg PO DAILY PRN naproxen sodium 550 mg PO Q12H PRN quetiapine 50 mg PO BEDTIME sumatriptan succinate 50 mg PO ONCE PRN tirzepatide (weight loss) (Zepbound) 7.5 mg subcut QWEEK Tobacco use date assessed: 04/03/24 Dental Screening Dental Screen Date: 04/03/24 Did you have a dental visit in the last 12 months?: Yes Did you have a dental problem in the last 6 months where you did not have access to dental care?: No Was dental information given to patient?: Patient has dentist HPI Meds review HPI Details 48-year-old lady here today for a follow-up.. She has anxiety depression currently on fluoxetine 20 mg daily and quetiapine 50 mg at bedtime and takes lorazepam as needed. Patient however states that she is having a lot of mood swings now and has been having difficulty sleeping despite taking all these medicines which initially has helped. She has been taking more of her lorazepam for acute anxiety attacks which has been even happening at work where she would get sudden onset of crying spells. She also has been having more frequent hot flashes. Has irregular periods. Also has been having a painful lump under her left axillary area, which started couple of days ago. Had recent fasting labs done which showed normal electrolytes and fasting glucose, as well as vitamin-D , but fasting lipids have increased as compared to last check. Patient states that she has been eating lot of sweets over the holidays. She is currently getting Zepbound for weight loss , through a medical weight loss clinic, but has to pay [id number] for it approximately 500 dollars per month. [facility] Medical History (Updated 04/03/24 @ 09:07 by Neelam Tom MD) Hidradenitis suppurativa of left axilla Chronic heartburn Anxiety and depression Vulval hidradenitis suppurativa Major depressive disorder, recurrent, in partial remission Cystic acne vulgaris Furunculosis of abdominal wall Intermittent lightheadedness Sleeping difficulty Excessive daytime sleepiness Morbid obesity Migraine Mixed dyslipidemia Surgical History History of appendectomy Family History Father Diabetes mellitus Bladder cancer HTN (hypertension) Mother Lung cancer HTN (hypertension) Brother No problems noted. Maternal Grandmother Lung cancer Breast cancer Paternal Grandmother Lung cancer Social History Housing: House Alcohol intake: current Patient Tobacco Use Status: Never used Tobacco e-Cigarette/Vaping Use: Never Used Second Hand Smoke Exposure: Yes service: No Current occupational status: employed Cognitive needs: No Hearing needs: No Vision needs: No Questionnaire PHQ-9 Over the last 2 weeks, how often have you been bothered by any of the following problems? 1. Little interest or pleasure in doing things: not at all 2. Feeling down, depressed, or hopeless: several days 3. Trouble falling or staying asleep, or sleeping too much: more than half the days 4. Feeling tired or having little energy: more than half the days 5. Poor appetite or overeating: not at all 6. Feeling bad about yourself - or that you are a failure or have let yourself or your family down: not at all 7. Trouble concentrating on things, such as reading the newspaper or watching television: several days 8. Moving or speaking so slowly that other people could have noticed. Or the opposite - being so fidgety or restless that you have been moving around a lot more than usual: not at all 9. Thoughts that you would be better off or of hurting yourself in some way: not at all Total score: 6 Depression Screening Interpretation: Positive (Currently on fluoxetine, quetiapine and lorazepam as needed, with dosage increase in fluoxetine today.) Depression Screening Follow-up: Existing condition, In treatment and Change in Medication Depression Screening Done: Yes 20767 - PHQ-9 Billing: Yes Source: Developed by Drs. Anatoly Tijerina, Tracey Faust, Vaibhav Butler and colleagues, with an educational savannah from [employer]. Thrive Questionnaire Date Thrive assessed: 04/03/24 I am a: Patient What is your living situation today?: I have a steady place to live Within the past 12 months, did the food you bought not last and you didn't have the money to get more?: Never true Within the past 12 months, did you worry whether your food would run out before you got money to buy more?: Never true Do you have trouble paying for medicines?: No Do you have trouble getting transportation to medical appointments?: No Do you have trouble paying your heating and electricity bill?: No Do you have trouble taking care of your child, family member or friend?: No Do you have trouble with day-to-day activities such as bathing, preparing meals, shopping, managing finances, etc.?: No Are you currently unemployed and looking for a job?: No Are you interested in more education?: No THRIVE Score: 0 AUDIT C Alcohol Use Questionnaire (AUDIT-C) 1. How often do you have a drink containing alcohol?: Monthly or less 2. How many drinks containing alcohol do you have on a typical day when you are drinking?: 1 or 2 3. How often do you have six or more drinks on one occasion?: Never Total Score: 1 KIP-7 AMB Questionnaire KIP-7 Date KIP - 7 assessed: 04/03/24 Feeling nervous, anxious, or on edge: 1 = Several days Not being able to stop or control worryin = Not at all Worrying too much about different things: 1 = Several days Trouble relaxin = Several days Being so restless that it is hard to sit still: 1 = Several days Becoming easily annoyed or irritable: 1 = Several days Feeling afraid as if something awful might happen: 0 = Not at all Total KIP-7 score (0-4 normal; 5-9 mild; 10-14 moderate; 15-21 severe): 5 Source: Developed by Drs. Anatoly Tijerina, Tracey Faust, Vaibhav Butler and colleagues, with an educational savannah from [employer]. KIP-7 Assessment Billing KIP-7 Assessment Tool: KIP-7 Assessment 09048 Review of Systems Const Reports as per HPI Eyes Reports no additional complaints and Denies change in vision ENT Denies dysphagia, Denies dizziness, Denies dry mouth, Denies nasal congestion, Denies post nasal drip and Denies sore throat Card Denies chest pain, Denies irregular heart rhythm, Denies lightheadedness and Denies dyspnea Resp Denies cough, Denies dyspnea and Denies wheezing GI Denies abdominal pain, Denies change in bowel habits, Denies dysphagia, Denies heartburn and Denies nausea Reports no additional complaints and Reports dysmenorrhea (takes naproxen prn) Musc Denies abnormal gait and Denies tingling Skin/Breast Reports as per HPI Neuro Denies abnormal gait, Denies dizziness, Denies Sensory deficit (Neuro) and Denies tingling Psych Reports as per HPI Endo Reports no additional complaints Carlos/Lymph Reports no additional complaints Aller/Immun Denies seasonal rhinorrhea and Denies wheezing Physical exam (Primary Care) Vital Signs: Last Vital Signs Temp 98.3 F 04/03/24 08:31 Pulse 87 04/03/24 08:31 Resp 16 04/03/24 08:31 BP 130/80 04/03/24 08:31 Pulse Ox 98 04/03/24 08:31 Oxygen Delivery Method Room Air 04/03/24 08:31 BMI result Body Mass Index 37.7 Tobacco/Smoking Status: Tobacco use Status Tobacco use date assessed 04/03/24 04/03/24 08:38 Patient Tobacco Use Status Never used Tobacco 04/03/24 08:38 e-Cigarette/Vaping Use Never Used 04/03/24 08:38 Depression Screening Interpretation: Positive (Currently on fluoxetine, quetiapine and lorazepam as needed, with dosage increase in fluoxetine today.) Depression Screening Follow-up: Existing condition, In treatment and Change in Medication Thrive Assessment: Date of Thrive Assessment Date Thrive assessed 04/25/21 04/03/24 08:38 Const General: cooperative, comfortable, no acute distress and alert Limitations: no limitations HENMT Mouth: moist mucous membranes Neck Other: Supple, no lymphadenopathy, thyroid gland not palpable Resp Effort & Inspection: normal respiratory effort and able to speak in complete sentences Auscultation: clear to auscultation bilaterally Cardio Rate: regular rate Rhythm: regular rhythm Heart sounds: S1 normal heart sound present and S2 normal heart sound present GI Inspection: Yes normal to inspection Palpation (GI): Soft to palpation, nontender, no guarding and no masses Auscultation: normal bowel sounds Skin Other: Firm erythematous tender, Nodular lesions on left axillary area, no drainage Neuro Sensory Exam: No Sensory deficit (Neuro) Extrem General: Yes full ROM, Yes no joint enlargement, Yes no pedal edema and Yes normal gait Psych Appearance: grossly normal and well kempt Mental Status: mental status grossly normal Speech and movement: Normal speech and movement present Affect: Anxious affect present Attitude: cooperative Thought process: Normal thought process present Thought content: Normal thought content present Results Reviewed Results Reviewed: Name: Xochitl Pierre Age/Sex: 48/F : 1975 Unit#: [id number] Attend Dr: Neelam Tom MD Re03/31/24 Status: DEP [facility]: SPEC : [id number] SOURAV: 03/31/24 STATUS: COMP REQ : [id number] RECD: 03/31/[address]: Neelam Tom MD COMP: 03/31/24 ENTERED: 03/31/[address]: ORDERED: AST, ALT, Lipid Panel, Vitamin D 25-OH Test Result Flag Reference AST (GOT) 28 5-31 U/L ALT (GPT) 14 0-31 U/L Triglyceride 258 H <150 mg/dL Desirable Triglyceride: less than 150 mg/dL Borderline High Triglyceride 150-199 mg/dL High Triglyceride: 200-499 mg/dL Very High Triglyceride: greater than or equal to 5OO mg/dL Cholesterol 224 H <200 mg/dL Desirable Cholesterol: less than 200 mg/dL Borderline High Cholesterol: 200-239 mg/dL High Cholesterol: greater than 239 mg/dL LDL Calculated 131 H <100 mg/dL Desirable LDL: less than 100 mg/dL Near Optimal/Above Optimal LDL: 110-129 mg/dL Borderline High LDL: 130-159 mg/dL High LDL: 160-189 mg/dL Very High LDL: greater than or equal to 190 mg/dL HDL 42 >40 mg/dL Desirable HDL: greater than 40 mg/dL Note: This HDL assay may give artificially low results in patients with liver disease. Vit D 25-OH Tot 64.4 >30 ng/mL Health Based Reference Values* < 20 ng/mL Deficient 20-30 ng/mL Insufficient > 30 ng/mL Sufficient *Ryanne WHALEN. N Engl J Med. 2007;[id number] Coding Level of Care Code Est Pt Level 4 (96191) Complex EM visit Add On G2211 Diagnoses Hidradenitis suppurativa of left axilla L73.2 Anxiety and depression F41.9; F32.A Mixed dyslipidemia E78.2 Additional Codes PHQ-9 - 87958 - PHQ-9 Billing: Yes ([id number]) KIP-7 Assessment Billing - KIP-7 Assessment Tool: KIP-7 Assessment 56666 ([id number]) Assessment & Plan Assessment & Plan (1) Hidradenitis suppurativa of left axilla: Code(s): L73.2 - Hidradenitis suppurativa Category: Medical Plan: Prescription sent for doxycycline 100 mg per capsule to take 1 every 12 hours for 10 days. (2) Anxiety and depression: Code(s): F41.9 - Anxiety disorder, unspecified; F32.A - Depression, unspecified Category: Medical Plan: Will increase dose of fluoxetine to 40 mg per capsule taken once a day in a.m.. And advised to adjust her quetiapine dose to 75 mg at bedtime initially, and may increase it to a 100 mg at bedtime as needed . Will see her back for a follow-up via telehealth in 4 weeks. (3) Mixed dyslipidemia: Code(s): E78.2 - Mixed hyperlipidemia Category: Medical Plan: Reviewed recent fasting lab results with patient which showed higher triglycerides and LDL cholesterol as compared to last check. Will continue on current dose of atorvastatin 10 mg daily, but reinforced importance of following low-cholesterol diet and getting regular exercise. Medications: New doxycycline hyclate 100 mg PO BID 20 caps 0RF L73.2 - Hidradenitis suppurativa Changed From fluoxetine 20 mg PO DAILY 90 caps 1RF F33.1 - Major depressive disorder, recurrent, moderate To fluoxetine 40 mg PO DAILY 30 caps 4RF F33.1 - Major depressive disorder, recurrent, moderate
== END 2024-04-03 09:41 | disposition home or self-care (01) ==
PROVIDERS: PCP Internal Medicine; Visit Provider Internal Medicine
DX: L73.2 Hidradenitis suppurativa (principal); F41.9 Anxiety disorder, unspecified; F32.A Depression, unspecified; E78.2 Mixed hyperlipidemia

== ENCOUNTER → 2024-04-03 08:26 | Outpatient (BNVA) | payer OTHER, SELFPAY | PROVIDERS: PCP Internal Medicine; Visit Provider Internal Medicine | DX: L73.2 Hidradenitis suppurativa (principal); F41.9 Anxiety disorder, unspecified; F32.A Depression, unspecified; E78.2 Mixed hyperlipidemia; Z79.899 Other long term (current) drug therapy | CPT/HCPCS: 96127 ==

== ENCOUNTER 2024-04-18 09:25 | Outpatient (AMB) | payer OTHER, SELFPAY ==
--- NOTE | 2024-04-18 09:23 | MHC.PC.OV ---
Intake Visit Reasons: f/u - Android - [phone] Allergies Sulfa (Sulfonamide Antibiotics) Allergy (Unknown, Verified 04/18/24 09:29) unknown trimethoprim [From BACTRIM] Allergy (Unknown, Verified 04/18/24 09:29) UNKNOWN Medication List - Last Reconciled 04/18/24 by Neelam Tom MD atorvastatin 10 mg PO DAILY fluoxetine 40 mg PO DAILY lorazepam 0.5 mg PO DAILY PRN naproxen sodium 550 mg PO Q12H PRN quetiapine 50 mg PO BEDTIME sumatriptan succinate 50 mg PO ONCE PRN tirzepatide (weight loss) (Zepbound) 7.5 mg subcut QWEEK Tobacco use date assessed: 04/18/24 Dental Screening Dental Screen Date: 04/18/24 Did you have a dental visit in the last 12 months?: Yes Did you have a dental problem in the last 6 months where you did not have access to dental care?: No Was dental information given to patient?: Patient has dentist HPI f/u - Android - [phone] HPI Details 48-year-old lady here today for a telehealth visit for follow-up on her anxiety depression. Her dose for fluoxetine was increased from 20-40 mg once a day on last visit, which she states has been helping. She has been having better sleep now that she started quetiapine at night. She has hidradenitis suppurativa, mainly in her axilla and inguinal areas as well as under breasts. She failed to schedule an appointment with Dermatology on last visit, requesting referral for another appointment. She has been going to a [facility] for weight loss, currently on Mounjaro 7.5 mg once a week, which has been helping her lose weight. She has been compliant with adhering to healthy eating habits but admits to not getting regular exercise. Denies any adverse reactions to medication. Requesting to see if insurance will cover her Mounjaro prescription instead of her pain [id number] for it [facility] Medical History (Updated 04/18/24 @ 23:48 by Neelam Tom MD) Obesity (BMI 35.0-39.9 without comorbidity) Hidradenitis suppurativa of left axilla Chronic heartburn Anxiety and depression Vulval hidradenitis suppurativa Major depressive disorder, recurrent, in partial remission Cystic acne vulgaris Furunculosis of abdominal wall Intermittent lightheadedness Sleeping difficulty Excessive daytime sleepiness Morbid obesity Migraine Mixed dyslipidemia Surgical History History of appendectomy Family History Father Diabetes mellitus Bladder cancer HTN (hypertension) Mother Lung cancer HTN (hypertension) Brother No problems noted. Maternal Grandmother Lung cancer Breast cancer Paternal Grandmother Lung cancer Social History Housing: House Alcohol intake: current Patient Tobacco Use Status: Never used Tobacco e-Cigarette/Vaping Use: Never Used Second Hand Smoke Exposure: Yes service: No Current occupational status: employed Cognitive needs: No Hearing needs: No Vision needs: No Questionnaire PHQ-9 Over the last 2 weeks, how often have you been bothered by any of the following problems? 1. Little interest or pleasure in doing things: not at all 2. Feeling down, depressed, or hopeless: not at all 3. Trouble falling or staying asleep, or sleeping too much: not at all 4. Feeling tired or having little energy: not at all 5. Poor appetite or overeating: not at all 6. Feeling bad about yourself - or that you are a failure or have let yourself or your family down: not at all 7. Trouble concentrating on things, such as reading the newspaper or watching television: not at all 8. Moving or speaking so slowly that other people could have noticed. Or the opposite - being so fidgety or restless that you have been moving around a lot more than usual: not at all 9. Thoughts that you would be better off or of hurting yourself in some way: not at all Total score: 0 Depression Screening Interpretation: Positive (Controlled on current dose of fluoxetine 40 mg daily and quetiapine 50 mg HS) Depression Screening Follow-up: Existing condition, In treatment and Community Mental Health Worker F/U Depression Screening Done: Yes 27809 - PHQ-9 Billing: Yes Source: Developed by Drs. Anatoly Tijerina, Tracey B.W. Vaibhav Faust and colleagues, with an educational savannah from [employer]. Thrive Questionnaire Date Thrive assessed: 04/03/24 AUDIT C Alcohol Use Questionnaire (AUDIT-C) 1. How often do you have a drink containing alcohol?: Monthly or less 2. How many drinks containing alcohol do you have on a typical day when you are drinking?: 1 or 2 3. How often do you have six or more drinks on one occasion?: Never Total Score: 1 KIP-7 AMB Questionnaire KIP-7 Date KIP - 7 assessed: 04/03/24 Source: Developed by Drs. Anatoly Tijerina, Vaibhav Barlow and colleagues, with an educational savannah from [employer]. KIP-7 Assessment Billing KIP-7 Assessment Tool: KIP-7 Assessment 74288 Review of Systems Const Reports as per HPI Eyes Reports no additional complaints ENT Denies dizziness, Denies dry mouth, Denies nasal congestion and Denies sore throat Card Denies chest pain, Denies irregular heart rhythm, Denies lightheadedness and Denies dyspnea Resp Denies cough, Denies dyspnea and Denies wheezing GI Denies abdominal pain, Denies change in bowel habits, Denies heartburn and Denies nausea Reports no additional complaints and Reports dysmenorrhea (takes naproxen prn) Musc Denies abnormal gait and Denies tingling Skin/Breast Reports as per HPI Neuro Denies abnormal gait, Denies dizziness, Denies Sensory deficit (Neuro) and Denies tingling Psych Reports as per HPI Endo Reports no additional complaints Carlos/Lymph Reports no additional complaints Aller/Immun Denies seasonal rhinorrhea and Denies wheezing Physical exam (Primary Care) Tobacco/Smoking Status: Tobacco use Status Tobacco use date assessed 04/18/24 04/18/24 09:25 Patient Tobacco Use Status Never used Tobacco 04/18/24 09:25 e-Cigarette/Vaping Use Never Used 04/18/24 09:25 Depression Screening Interpretation: Positive (Controlled on current dose of fluoxetine 40 mg daily and quetiapine 50 mg HS) Depression Screening Follow-up: Existing condition, In treatment and Community Mental Health Worker F/U Thrive Assessment: Date of Thrive Assessment Date Thrive assessed 04/03/24 04/18/24 09:25 Neuro Sensory Exam: No Sensory deficit (Neuro) Telehealth Telehealth Telehealth Platform: [employer] Location of provider rendering services: practice address Location of patient: address on file Patient Identification confirmed using: Name, : Yes Telehealth method: video Patient verbally consented to treatment: Yes Patient verbally consented to billing insurance company: Yes Patient informed of any privacy concerns related to visit: Yes Minutes spent on Phone/Video with Pt.: 15 Coding Level of Care Code Tele Est Pt Level 4 (70285) Diagnoses Cystic acne vulgaris L70.0 Hidradenitis suppurativa of left axilla L73.2 Anxiety and depression F41.9; F32.A Obesity (BMI 35.0-39.9 without comorbidity) E66.9 Additional Codes PHQ-9 - 62483 - PHQ-9 Billing: Yes ([id number]) KIP-7 Assessment Billing - KIP-7 Assessment Tool: KIP-7 Assessment 12927 ([id number]) Assessment & Plan Assessment & Plan (1) Cystic acne vulgaris: Code(s): L70.0 - Acne vulgaris Category: Medical Plan: Referral to [facility] ordered (2) Hidradenitis suppurativa of left axilla: Code(s): L73.2 - Hidradenitis suppurativa Category: Medical Plan: Referral to [facility] ordered (3) Anxiety and depression: Code(s): F41.9 - Anxiety disorder, unspecified; F32.A - Depression, unspecified Category: Medical Plan: Controlled on fluoxetine 40 mg once a day and quetiapine 50 mg at bedtime, rarely needing to use her lorazepam prescription (4) Obesity (BMI 35.0-39.9 without comorbidity): Code(s): E66.9 - Obesity, unspecified Category: Medical Plan: Prescription sent for Mounjaro 7.5 mg subcutaneously given once a week. Stressed importance of adhering to a healthy diet and getting regular exercise. Orders: Referrals Dermatology Referral L70.0 - Acne vulgaris, L73.2 - Hidradenitis suppurativa Medications: Changed From tirzepatide (weight loss) (Zepbound) 7.5 mg subcut QWEEK To Zepbound (tirzepatide (weight loss)) 7.5 mg (0.5 mL) subcut QWEEK 2 mL 1RF NS
== END 2024-04-18 11:47 | disposition home or self-care (01) ==
LOC: HO.HMCC 09:25
PROVIDERS: PCP Internal Medicine; Visit Provider Internal Medicine
DX: L70.0 Acne vulgaris (principal); L73.2 Hidradenitis suppurativa; F41.9 Anxiety disorder, unspecified; F32.A Depression, unspecified; E66.9 Obesity, unspecified

== ENCOUNTER → 2024-04-18 09:25 | Outpatient (BNVA) | payer OTHER, SELFPAY | PROVIDERS: PCP Internal Medicine; Visit Provider Internal Medicine | DX: F41.9 Anxiety disorder, unspecified (principal); F32.A Depression, unspecified; L70.0 Acne vulgaris; L73.2 Hidradenitis suppurativa; E66.9 Obesity, unspecified; Z79.899 Other long term (current) drug therapy | CPT/HCPCS: 96127 ==

== ENCOUNTER → 2024-06-02 14:53 | Outpatient (BNVA) | payer OTHER, SELFPAY | PROVIDERS: PCP Internal Medicine; Visit Provider Internal Medicine | DX: Z13.89 Encounter for screening for other disorder (principal) ==

== ENCOUNTER 2024-10-09 09:25 | Outpatient (REF) | payer OTHER, SELFPAY ==
[2024-10-09 13:11] LABS: MANUAL DIFF FLAG NO
[2024-10-09 13:22] LABS: Hematocrit 32.9 % (37.0-47.0); Hemoglobin 9.5 g/dl (12.0-16.0); Imm Gran Abs Auto 0.13 X10*3/uL (0.00-0.03); Imm Gran Pct Auto 1.1 % (0.0-0.4); Lymphocytes Absolute Auto 1.7 X10*3/uL (1.2-4.9); Mean Corpuscular HGB Conc 28.9 g/dl (31.0-35.0); Mean Corpuscular Hemoglobin 19.8 pg (27.0-33.0); Mean Corpuscular Volume 68.7 fL (80.0-98.0); NRBC Abs Auto 0.000 X10*3/uL (0.0-0.012); NRBC Pct Auto 0.0 /100WBC (0.0-0.2); Platelet Count 693 X10*3/uL (160-400); Red Blood Count 4.79 X10*6/uL (4.20-5.50); White Blood Count 11.8 X10*3/uL (4.8-10.8)
[2024-10-09 13:51] LABS: Alanine Aminotransferase 24 U/L (0-31); Aspartate Amino Transferase 32 U/L (5-31); Cholesterol 206 mg/dL (<200); HDL Cholesterol 45 mg/dL (>40); Triglycerides 154 mg/dL (<150)
== END 2024-10-09 09:26 | disposition home or self-care (01) ==
LOC: HO.HMGCLDS 09:25
PROVIDERS: PCP Internal Medicine; Visit Provider Internal Medicine
DX: R50.9 Fever, unspecified (principal); J06.9 Acute upper respiratory infection, unspecified; E78.2 Mixed hyperlipidemia; E66.9 Obesity, unspecified; Z68.36 Body mass index [BMI] 36.0-36.9, adult; F41.9 Anxiety disorder, unspecified; F32.A Depression, unspecified; R53.83 Other fatigue; G25.81 Restless legs syndrome; D64.9 Anemia, unspecified; L70.0 Acne vulgaris; L73.2 Hidradenitis suppurativa; Z71.3 Dietary counseling and surveillance
CPT/HCPCS: 36415; 80061; 82306; 84443; 84450; 84460; 85025; 96127

== ENCOUNTER 2024-10-09 09:25 | Outpatient (AMB) | payer OTHER, SELFPAY ==
[2024-10-09 09:30] VITALS: BP 116/70; PULSE 90; RESP 16; TEMP 37.8; O2SAT 99; BMI 36.2
--- NOTE | 2024-10-09 09:30 | A.OFFPC_ITS ---
Vital Signs 10/09/24 09:30 Height 5 ft 2 in Weight 198 lb BMI 36.2 BP 116/70 Blood Pressure Location Lt brachial Position Sitting Respiration 16 Pulse 90 Pulse Source Pulse Oximeter Temp 100.0 F Temp Source Oral Pulse Oximetry (%) 99 Oxygen Delivery Method Room Air Intake Visit Reasons: Medication review Intake Note: Pt is here today c/o insomnia Allergies Sulfa (Sulfonamide Antibiotics) Allergy (Unknown, Verified 10/09/24 10:00) unknown trimethoprim (From BACTRIM) Allergy (Unknown, Verified 10/09/24 10:00) UNKNOWN Medication List - Last Reconciled 10/09/24 by Neelam Tom MD atorvastatin 10 mg PO DAILY doxycycline hyclate 100 mg PO BID fluoxetine 40 mg PO DAILY lorazepam 0.5 mg PO DAILY PRN naproxen sodium 550 mg PO Q12H PRN quetiapine 50 mg PO BEDTIME spironolactone 50 mg PO DAILY sumatriptan succinate 50 mg PO ONCE PRN Zepbound (tirzepatide (weight loss)) 7.5 mg (0.5 mL) subcut QWEEK NS Tobacco use date assessed: 10/09/24 Dental Screening Dental Screen Date: 04/18/24 HPI Medication review HPI0 Details - The patient is a 48-year-old female he re today for follow-up. - patient reports a sensation of needin g to move her legs constantly especially at night, which disrupts her sleep. This condition has recently started and is causing significant sleep disturbances. - Anemia: The patient experiences heavy menstrual flow and has concerns about anemia. A complete blood count is ordered - Premenstrual Syndrome: The patient rep orts increased heart rate and anxiety the week before her menstrual cycle, occasionally takes lorazepam which has been having.. - Hidradenitis Suppurativa: The patient is on spironolactone, which has improved her condition. She takes doxycycline during flare-ups. - Depression with anxiety: The patient's depression is in partial remission. Currently taking fluoxetine and quetiapine. She is currently not seeing a therapist or psychiatrist. - Acne: The patient's acne has improved with current treatment. - Obesity: The patient has lost 60 pound s and is now under 200 pounds, with a goal weight of 160 pounds. Currently on Zepbound 7.5 mg once a week. Tolerating medication well with no adverse effects reported - Hypertension: The patient's blood pres sure is well-controlled with current medication. -she takes atorvastatin 10 mg once a day for treatment of hyperlipidemia, combined with adherence to healthy eating habits. -complaining having low-grade just today accompanied by scratchy throat and nasal congestion. Denies any shortness of breath, no cough, no headache PFSH Medical History (Updated 10/11/24 @ 07:38 by Neelam Tom MD) Anemia Restless leg syndrome Obesity (BMI 30-39.9) Hidradenitis suppurativa of left axilla Chronic heartburn Anxiety and depression Vulval hidradenitis suppurativa Cystic acne vulgaris Migraine Mixed dyslipidemia Surgical History History of appendectomy Family History Father Diabetes mellitus Bladder cancer HTN (hypertension) Mother Lung cancer HTN (hypertension) Brother No problems noted. Maternal Grandmother Lung cancer Breast cancer Paternal Grandmother Lung cancer Social History Housing: House Alcohol intake: current Patient Tobacco Use Status: Never used Tobacco e-Cigarette/Vaping Use: Never Used Second Hand Smoke Exposure: Yes service: No Current occupational status: employed Cognitive needs: No Hearing needs: No Vision needs: No Questionnaire PHQ-9 Over the last 2 weeks, how often have you been bothered by any of the following problems? 1. Little interest or pleasure in doing things: not at all 2. Feeling down, depressed, or hopeless: not at all 3. Trouble falling or staying asleep, or sleeping too much: several days 4. Feeling tired or having little energy: not at all 5. Poor appetite or overeating: not at all 6. Feeling bad about yourself - or that you are a failure or have let yourself or your family down: not at all 7. Trouble concentrating on things, such as reading the newspaper or watching television: not at all 8. Moving or speaking so slowly that other people could have noticed. Or the opposite - being so fidgety or restless that you have been moving around a lot more than usual: not at all 9. Thoughts that you would be better off or of hurting yourself in some way: not at all Total score: 1 Depression Screening Interpretation: Positive (Controlled with medication) Depression Screening Follow-up: Existing condition and In treatment Depression Screening Done: Yes 99915 - PHQ-9 Billing: Yes Source: Developed by Drs. Anatoly Tijerina, Tracey Faust, Vaibhav Butler and colleagues, with an educational savannah from [employer]. Thrive Questionnaire Date Thrive assessed: 04/03/24 I am a: Patient What is your living situation today?: I have a steady place to live Within the past 12 months, did the food you bought not last and you didn't have the money to get more?: Never true Within the past 12 months, did you worry whether your food would run out before you got money to buy more?: Never true Do you have trouble paying for medicines?: No Do you have trouble getting transportation to medical appointments?: No Do you have trouble paying your heating and electricity bill?: No Do you have trouble taking care of your child, family member or friend?: No Do you have trouble with day-to-day activities such as bathing, preparing meals, shopping, managing finances, etc.?: No Are you currently unemployed and looking for a job?: No Are you interested in more education?: No Please select the resources that you would like help with: None Currently or been in a relationship where the following occur: No concerns reported THRIVE Score: 0 AUDIT C Alcohol Use Questionnaire (AUDIT-C) 1. How often do you have a drink containing alcohol?: Monthly or less 2. How many drinks containing alcohol do you have on a typical day when you are drinking?: 1 or 2 3. How often do you have six or more drinks on one occasion?: Never Total Score: 1 KIP-7 AMB Questionnaire KIP-7 Date KIP - 7 assessed: 04/03/24 Feeling nervous, anxious, or on edge: 0 = Not at all Not being able to stop or control worryin = Not at all Worrying too much about different things: 0 = Not at all Trouble relaxin = Not at all Being so restless that it is hard to sit still: 0 = Not at all Becoming easily annoyed or irritable: 0 = Not at all Feeling afraid as if something awful might happen: 0 = Not at all Total KIP-7 score (0-4 normal; 5-9 mild; 10-14 moderate; 15-21 severe): 0 Source: Developed by Drs. Anatoly Tijerina, Tracey Faust, Vaibhav Butler and colleagues, with an educational savannah from [employer]. Review of Systems Const Reports as per HPI and Reports fatigue Eyes Reports no additional complaints ENT Denies dizziness, Denies dry mouth, Denies nasal congestion and Denies sore throat Card Denies chest pain, Denies irregular heart rhythm, Denies lightheadedness and Denies dyspnea Resp Denies cough, Denies dyspnea and Denies wheezing GI Denies abdominal pain, Denies change in bowel habits, Denies heartburn and Denies nausea Reports as per HPI and Reports dysmenorrhea (takes naproxen prn) Musc Denies abnormal gait Skin/Breast Reports as per HPI Neuro Denies abnormal gait, Denies dizziness and Denies Sensory deficit (Neuro) Psych Reports no additional complaints Endo Reports no additional complaints and Reports fatigue Carlos/Lymph Reports no additional complaints Aller/Immun Denies seasonal rhinorrhea and Denies wheezing Physical exam (Primary Care) Vital Signs: Last Vital Signs Temp 100.0 F 10/09/24 09:30 Pulse 90 10/09/24 09:30 Resp 16 10/09/24 09:30 BP 116/70 10/09/24 09:30 Pulse Ox 99 10/09/24 09:30 Oxygen Delivery Method Room Air 10/09/24 09:30 BMI result Body Mass Index 36.2 Tobacco/Smoking Status: Tobacco use Status Tobacco use date assessed 10/09/24 10/09/24 09:36 Patient Tobacco Use Status Never used Tobacco 10/09/24 09:36 e-Cigarette/Vaping Use Never Used 10/09/24 09:36 PHQ-9: PHQ-9 Score PHQ-9: Total score 1 10/11/24 07:30 Depression Screening Interpretation: Positive (Controlled with medication) Depression Screening Follow-up: Existing condition and In treatment Thrive Assessment: Date of Thrive Assessment Date Thrive assessed 04/03/24 10/09/24 09:36 Currently or been in a relationship where the following occur: No concerns reported Const General: no acute distress and alert Nutritional Appearance: obese Orientation/consciousness: patient oriented x3 HENMT Ears: external ears normal General nose exam: Normal external nose present Face and sinus: Yes face symmetric Mouth: Normal oral and palatal mucosa present and moist mucous membranes Eyes General: appearance normal, both eyes and all related structures Neck Other: Supple, no lymphadenopathy, thyroid gland not palpable Resp Effort & Inspection: normal respiratory effort and able to speak in complete se ntences Auscultation: clear to auscultation bilaterally Cardio Rate: regular rate Rhythm: regular rhythm Heart sounds: S1 normal heart sound present and S2 normal heart sound present GI Inspection: Yes normal to inspection Palpation (GI): Soft to palpation, nontender, no guarding and no masses Auscultation: normal bowel sounds General: Yes no CVA tenderness Back/Spine/Pelvis Back: no CVA tenderness and No back tenderness Skin General skin exam: no rashes or lesions noted Neuro General: patient oriented x3, gait normal, tone normal and no focal motor deficits Sensory Exam: No Sensory deficit (Neuro) Extrem General: Yes full ROM, Yes no joint enlargement, Yes no pedal edema and Yes normal gait Psych Appearance: grossly normal and well kempt Mental Status: mental status grossly normal Speech and movement: Normal speech and movement present Coding Level of Care Code Est Pt Level 4 (99080) Diagnoses Fever, unspecified fever cause R50.9 Fever type: unspecified Upper respiratory tract infection, unspecified type J06.9 URI type: unspecified URI Mixed dyslipidemia E78.2 Obesity (BMI 30-39.9) E66.9 Anxiety and depression F41.9; F32.A Fatigue, unspecified type R53.83 Fatigue type: unspecified Restless leg syndrome G25.81 Anemia, unspecified type D64.9 Anemia type: unspecified type Cystic acne vulgaris L70.0 Hidradenitis suppurativa of left axilla L73.2 Additional Codes PHQ-9 - 34916 - PHQ-9 Billing: Yes ([id number]) Assessment & Plan Assessment & Plan (1) Fever: Code(s): R50.9 - Fever, unspecified Qualifiers: Fever type: unspecified Qualified Code(s): R50.9 - Fever, unspecified (2) URI (upper respiratory infection): Code(s): J06.9 - Acute upper respiratory infection, unspecified Qualifiers: URI type: unspecified URI Qualified Code(s): J06.9 - Acute upper respiratory infection, unspecified (3) Mixed dyslipidemia: Code(s): E78.2 - Mixed hyperlipidemia Category: Medical (4) Obesity (BMI 30-39.9): Code(s): E66.9 - Obesity, unspecified Category: Medical (5) Anxiety and depression: Code(s): F41.9 - Anxiety disorder, unspecified; F32.A - Depression, unspecified Category: Medical (6) Fatigue: Code(s): R53.83 - Other fatigue Qualifiers: Fatigue type: unspecified Qualified Code(s): R53.83 - Other fatigue (7) Restless leg syndrome: Code(s): G25.81 - Restless legs syndrome Category: Medical (8) Anemia: Code(s): D64.9 - Anemia, unspecified Category: Medical Qualifiers: Anemia type: unspecified type Qualified Code(s): D64.9 - Anemia, unspecified (9) Cystic acne vulgaris: Code(s): L70.0 - Acne vulgaris Category: Medical (10) Hidradenitis suppurativa of left axilla: Code(s): L73.2 - Hidradenitis suppurativa Category: Medical Plan Ordered complete blood count to evaluate for anemia and thyroid function tests to rule out any thyroid dysfunction. The patient will be started on Requip for restless leg syndrome, and CBC checked for anemia. Additionally, the patient is advised to continue with spironolactone for hidradenitis suppurativa and to use doxycycline during flare-ups. The patient is encouraged to maintain her current weight loss efforts, with a target weight of 160 pounds. Continued on Zepbound. Regular monitoring of blood pressure is advised .. The patient is also informed about the potential side effects of GLP-1 receptor agonists, including possible visual changes, and is advised to discuss this with her public relations director. Fasting labs ordered today to check for her lipids, liver enzymes and vitamin-D level. Will also check for COVID-19/flu and RSV infection as she is exhibiting upper respiratory symptoms accompanied by low-grade fever. Patient was informed and verbally consented to the use of an ambient scribe for clinic note documentation during this visit. Orders: Orders Aspartate Amino Transferase 10/09/24 E78.2 - Mixed hyperlipidemia, J06.9 - Acute upper respiratory infection, unspecified, R50.9 - Fever, unspecified Vitamin D 25-OH Total 10/09/24 E78.2 - Mixed hyperlipidemia, J06.9 - Acute upper respiratory infection, unspecified, R50.9 - Fever, unspecified SARS-CoV2/FLU/RSV 10/09/24 J06.9 - Acute upper respiratory infection, unspecified, R50.9 - Fever, unspecified Complete Blood Count Auto Diff 10/09/24 E78.2 - Mixed hyperlipidemia, J06.9 - Acute upper respiratory infection, unspecified, R50.9 - Fever, unspecified Lipid Panel 10/09/24 E78.2 - Mixed hyperlipidemia, J06.9 - Acute upper respiratory infection, unspecified, R50.9 - Fever, unspecified Alanine Aminotransferase 10/09/24 E78.2 - Mixed hyperlipidemia, J06.9 - Acute upper respiratory infection, unspecified, R50.9 - Fever, unspecified TSH reflex Free T4 10/09/24 R53.83 - Other fatigue Medications: New ropinirole administer 1-3 hours before bedtime 0.25 mg PO BEDTIME 30 tabs 2RF G25.81 - Restless legs syndrome
== END 2024-10-09 10:39 | disposition home or self-care (01) ==
LOC: HO.HMCC 09:26
PROVIDERS: PCP Internal Medicine; Visit Provider Internal Medicine
DX: R50.9 Fever, unspecified (principal); J06.9 Acute upper respiratory infection, unspecified; E66.9 Obesity, unspecified; Z68.36 Body mass index [BMI] 36.0-36.9, adult; E78.2 Mixed hyperlipidemia; F41.9 Anxiety disorder, unspecified; F32.A Depression, unspecified; R53.83 Other fatigue; G25.81 Restless legs syndrome; D64.9 Anemia, unspecified; L70.0 Acne vulgaris; L73.2 Hidradenitis suppurativa

== ENCOUNTER 2024-11-20 08:35 | Outpatient (REF) | payer OTHER, SELFPAY ==
[2024-11-20 10:36] LABS: MANUAL DIFF FLAG NO
[2024-11-20 10:45] LABS: Hematocrit 37.3 % (37.0-47.0); Hemoglobin 11.3 g/dl (12.0-16.0); Imm Gran Abs Auto 0.05 X10*3/uL (0.00-0.03); Imm Gran Pct Auto 0.5 % (0.0-0.4); Lymphocytes Absolute Auto 1.9 X10*3/uL (1.2-4.9); Mean Corpuscular HGB Conc 30.3 g/dl (31.0-35.0); Mean Corpuscular Hemoglobin 22.2 pg (27.0-33.0); Mean Corpuscular Volume 73.1 fL (80.0-98.0); NRBC Abs Auto 0.000 X10*3/uL (0.0-0.012); NRBC Pct Auto 0.0 /100WBC (0.0-0.2); Platelet Count 572 X10*3/uL (160-400); Red Blood Count 5.10 X10*6/uL (4.20-5.50); White Blood Count 9.8 X10*3/uL (4.8-10.8)
[2024-11-20 11:14] LABS: Alanine Aminotransferase 24 U/L (0-31); Anion Gap 14 (12-20); Aspartate Amino Transferase 30 U/L (5-31); Blood Urea Nitrogen 14 mg/dL (9-16); Calcium 9.7 mg/dL (8.4-10.2); Carbon Dioxide 25 mmol/L (22-29); Chloride 103 mmol/L (96-108); Cholesterol 215 mg/dL (<200); Estimated Glomerular Filt Rate > 60; HDL Cholesterol 47 mg/dL (>40); Iron 21 mcg/dL (30-160); Percent Iron Saturation 6 % (15-50); Potassium 4.7 mmol/L (3.3-5.1); Sodium 137 mmol/L (135-145); Total Iron Binding Capacity 373 mcg/dL (228-428); Triglycerides 239 mg/dL (<150); Unsaturated Iron Binding 352 ug/dL
== END 2024-11-20 08:36 | disposition home or self-care (01) ==
LOC: HO.HMGCLDS 08:35
PROVIDERS: PCP Internal Medicine; Visit Provider Internal Medicine
DX: E78.2 Mixed hyperlipidemia (principal); D64.9 Anemia, unspecified; E66.9 Obesity, unspecified; G43.009 Migraine without aura, not intractable, without status migrainosus; G25.81 Restless legs syndrome
CPT/HCPCS: 36415; 80048; 80061; 82306; 83540; 84450; 84460; 85025

== ENCOUNTER 2024-12-25 11:26 | Outpatient (AMB) | payer OTHER, SELFPAY ==
[2024-12-25 11:29] VITALS: BP 104/70; PULSE 96; RESP 15; TEMP 36.9; O2SAT 98; BMI 34.7
--- NOTE | 2024-12-25 11:29 | MHC.PC.OV ---
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 Required: No Allergies Sulfa (Sulfonamide Antibiotics) Allergy (Unknown, Verified 12/25/24 11:46) unknown trimethoprim (From BACTRIM) Allergy (Unknown, Verified 12/25/24 11:46) UNKNOWN Medication List - Last Reconciled 12/25/24 by Neleam Tom MD atorvastatin 10 mg PO DAILY ferrous sulfate 325 mg PO DAILY fluoxetine 40 mg PO DAILY lorazepam 0.5 mg PO DAILY PRN naproxen sodium 550 mg PO Q12H PRN quetiapine 50 mg PO BEDTIME ropinirole 0.25 mg PO BEDTIME spironolactone 50 mg PO DAILY sumatriptan succinate 50 mg PO ONCE PRN Zepbound (tirzepatide (weight loss)) 7.5 mg (0.5 mL) subcut QWEEK NS Tobacco use date assessed: 12/25/24 Dental Screening Dental Screen Date: 12/25/24 Did you have a dental visit in the last 12 months?: Yes Did you have a dental problem in the last 6 months where you did not have access to dental care?: No Was dental information given to patient?: Patient has dentist HPI PE HPI Details 49-year-old lady with past medical history significant for dyslipidemia, restless leg syndrome, obesity, hidradenitis suppurativa, anxiety and depression, migraine, here today for her physical exam. Up-to-date with her screening this year and had cervical cancer screening done in 2022, which showed benign findings Had a colonoscopy and upper endoscopy done [place] [address] Blake , repeat colonoscopy due again in 2032. [facility] Medical History Anemia Restless leg syndrome Obesity (BMI 30-39.9) Hidradenitis suppurativa of left axilla Chronic heartburn Anxiety and depression Vulval hidradenitis suppurativa Cystic acne vulgaris Migraine Mixed dyslipidemia Surgical History History of appendectomy Family History Father Diabetes mellitus Bladder cancer HTN (hypertension) Mother Lung cancer HTN (hypertension) Brother No problems noted. Maternal Grandmother Lung cancer Breast cancer Paternal Grandmother Lung cancer Social History Housing: House Alcohol intake: current Patient Tobacco Use Status: Never used Tobacco e-Cigarette/Vaping Use: Never Used Second Hand Smoke Exposure: Yes service: No Current occupational status: employed Cognitive needs: No Hearing needs: No Vision needs: No Questionnaire PHQ-9 Over the last 2 weeks, how often have you been bothered by any of the following problems? 1. Little interest or pleasure in doing things: not at all 2. Feeling down, depressed, or hopeless: not at all 3. Trouble falling or staying asleep, or sleeping too much: several days 4. Feeling tired or having little energy: not at all 5. Poor appetite or overeating: not at all 6. Feeling bad about yourself - or that you are a failure or have let yourself or your family down: not at all 7. Trouble concentrating on things, such as reading the newspaper or watching television: not at all 8. Moving or speaking so slowly that other people could have noticed. Or the opposite - being so fidgety or restless that you have been moving around a lot more than usual: not at all 9. Thoughts that you would be better off or of hurting yourself in some way: not at all Total score: 1 Source: Developed by Drs. Anatoly Tijerina, Tracey Faust, Vaibhav Butler and colleagues, with an educational savannah from [employer]. Thrive Questionnaire Date Thrive assessed: 10/09/24 I am a: Patient What is your living situation today?: I have a steady place to live Within the past 12 months, did the food you bought not last and you didn't have the money to get more?: Never true Within the past 12 months, did you worry whether your food would run out before you got money to buy more?: Never true Do you have trouble paying for medicines?: No Do you have trouble getting transportation to medical appointments?: No Do you have trouble paying your heating and electricity bill?: No Do you have trouble taking care of your child, family member or friend?: No Do you have trouble with day-to-day activities such as bathing, preparing meals, shopping, managing finances, etc.?: No Are you currently unemployed and looking for a job?: No Are you interested in more education?: No Please select the resources that you would like help with: None Currently or been in a relationship where the following occur: No concerns reported THRIVE Score: 0 KIP-7 AMB Questionnaire KIP-7 Date KIP - 7 assessed: 04/03/24 Feeling nervous, anxious, or on edge: 0 = Not at all Not being able to stop or control worryin = Not at all Worrying too much about different things: 0 = Not at all Trouble relaxin = Not at all Being so restless that it is hard to sit still: 0 = Not at all Becoming easily annoyed or irritable: 0 = Not at all Feeling afraid as if something awful might happen: 0 = Not at all Total KIP-7 score (0-4 normal; 5-9 mild; 10-14 moderate; 15-21 severe): 0 Source: Developed by Drs. Anatoly Tijerina, Tracey Faust, Vaibhav Butler and colleagues, with an educational savannah from [employer]. Review of Systems Eyes Details: Up-to-date with eye exam, seen this year ENT Details: Dental prophylaxis every six-months Skin/Breast Details: Life changing sees dry prong dermatology once a year Physical exam (Primary Care) Vital Signs: Last Vital Signs Temp 98.4 F 12/25/24 11:29 Pulse 96 12/25/24 11:29 Resp 15 12/25/24 11:29 BP 104/70 12/25/24 11:29 Pulse Ox 98 12/25/24 11:29 Oxygen Delivery Method Room Air 12/25/24 11:29 BMI result Body Mass Index 34.7 Tobacco/Smoking Status: Tobacco use Status Tobacco use date assessed 12/25/24 12/25/24 11:34 Patient Tobacco Use Status Never used Tobacco 12/25/24 11:34 e-Cigarette/Vaping Use Never Used 12/25/24 11:34 PHQ-9: PHQ-9 Score PHQ-9: Total score 1 12/25/24 11:34 Thrive Assessment: Date of Thrive Assessment Date Thrive assessed 10/09/24 12/25/24 11:34 Currently or been in a relationship where the following occur: No concerns reported Office Procedures Flu Questionnaire Does the patient have a severe egg allergy?: No Does the patient have severe life threatening allergies?: No Does the patient have a fever or illness today?: No Has the patient ever had Guillain-Hamburg Syndrome?: No Has the patient ever had any past reaction to a flu shot?: No Immunizations Fluarix [id number] (PF) 45 mcg (15 mcg x 3)/0.5 mL IM syringe Performing Provider: Neelam Tom MD Performing Location: [facility] [place] [facility] Administered by: Loretta Lyman CMA on 12/25/24 11:44 Dose Route Admin Location Dispensed Lot Number Expiration Date [facility] [employer] Repairer 0.5 mL IM Left Deltoid 0.5 mL [id number] 08/18/25 [id number] Head Held HighINE VIS Given Date VIS Provided VIS Publication Date 12/25/24 Single Vaccine 24 Eligibility Eligibility Date Funding Source Not [facility] Eligible 12/25/24 Private Results Reviewed Results Reviewed: Name: Xochitl Pierre Age/Sex: 48/F : 1975 Unit#: [id number] Attend Dr: Neelam Tom MD Re11/20/24 Status: DEP REF Location: [facility] Disch: SPEC : [id number] SOURAV: 11/20/24 STATUS: COMP REQ : [id number] RECD: 11/20/[address]: Neelam Tom MD COMP: 11/20/24 ENTERED: 11/20/[address]: ORDERED: CBC Auto Diff Test Result Flag Reference WBC 9.8 4.8-10.8 X10*3/uL RBC 5.10 4.20-5.50 X10*6/uL HGB 11.3 L 12.0-16.0 g/dl HCT 37.3 37.0-47.0 % MCV 73.1 L 80.0-98.0 fL MCH 22.2 L 27.0-33.0 pg MCHC 30.3 L 31.0-35.0 g/dl RDW 23.8 H 11.0-16.0 % PLT 572 H 160-400 X10*3/uL MPV 9.3 L 9.4-12.3 fL Neut Pct Auto 69.5 45-73 % ImGran Pct Auto 0.5 H 0.0-0.4 % Lymp Pct Auto 19.0 L 20-40 % [place] Pct Auto 6.0 2-11 % Eos Pct Auto 4.3 H 0-4 % Baso Pct Auto 0.7 0-2 % NRBC Pct Auto 0.0 0.0-0.2 /100WBC ANC Neut Abs # 6.8 2.0-8.3 x10*3/uL ImGran Abs Auto 0.05 H 0.00-0.03 X10*3/uL Lymph Abs Auto 1.9 1.2-4.9 X10*3/uL [place] Abs Auto 0.6 0.1-1.2 X10*3/uL Eos Abs Auto 0.4 0.0-0.4 X10*3/uL Baso Abs Auto 0.1 0.0-0.2 X10*3/uL NRBC Abs Auto 0.000 0.0-0.012 X10*3/uL Name: Xochitl Pierre Age/Sex: 48/F : 1975 Unit#: [id number] Attend Dr: Neelam Tom MD Re11/20/24 Status: DEP [facility] Disch: SPEC : [id number] SOURAV: 11/20/24 STATUS: COMP REQ : [id number] RECD: 11/20/[address]: Neelam Tom MD COMP: 11/20/244 ENTERED: 11/20/[address]: ORDERED: Met Prof Fast, IRON PROF, AST, ALT, Lipid Panel, Vitamin D 25-OH Test Result Flag Reference Sodium 137 135-145 mmol/L Potassium 4.7 3.3-5.1 mmol/L CL 103 96-108 mmol/L CO2 25 22-29 mmol/L Gap 14 12-20 BUN 14 9-16 mg/dL Creat 0.68 0.5-1.4 mg/dL eGFR > 60 Chronic Kidney Disease: Estimated GFR < 60 mL/min/1.73m2 Severe Kidney Disease: Estimated GFR < 15 mL/min/1.73m2 FBS 105 H 60-99 mg/dL A fasting glucose from 100-125 mg/dl is considered impaired (pre-diabetes). CA 9.7 8.4-10.2 mg/dL Iron 21 L 30-160 mcg/dL TIBC 373 228-428 mcg/dL Saturation 6 L 15-50 % UIBC 352 ug/dL AST (GOT) 30 5-31 U/L ALT (GPT) 24 0-31 U/L Triglyceride 239 H <150 mg/dL Desirable Triglyceride: less than 150 mg/dL Borderline High Triglyceride 150-199 mg/dL High Triglyceride: 200-499 mg/dL Very High Triglyceride: greater than or equal to 5OO mg/dL Cholesterol 215 H <200 mg/dL Desirable Cholesterol: less than 200 mg/dL Borderline High Cholesterol: 200-239 mg/dL High Cholesterol: greater than 239 mg/dL LDL Calculated 121 H <100 mg/dL Desirable LDL: less than 100 mg/dL Near Optimal/Above Optimal LDL: 110-129 mg/dL Borderline High LDL: 130-159 mg/dL High LDL: 160-189 mg/dL Very High LDL: greater than or equal to 190 mg/dL HDL 47 >40 mg/dL Desirable HDL: greater than 40 mg/dL Note: This HDL assay may give artificially low results in patients with liver disease. Vitamin D 25-OH 73.6 >30 ng/mL Health Based Reference Values* < 20 ng/mL Deficient 20-30 ng/mL Insufficient > 30 ng/mL Sufficient Coding Diagnoses Mixed dyslipidemia E78.2 Migraine without aura and without status migrainosus, not intractable G43.009 Migraine type: without aura Status migrainosus presence: without status migrainosus Intractability: not intractable Anxiety and depression F41.9; F32.A Hidradenitis suppurativa of left axilla L73.2 Obesity (BMI 30-39.9) E66.9 Restless leg syndrome G25.81 Anemia, unspecified type D64.9 Anemia type: unspecified type Assessment & Plan Assessment & Plan (1) Mixed dyslipidemia: Code(s): E78.2 - Mixed hyperlipidemia Category: Medical (2) Migraine: Code(s): G43.909 - Migraine, unspecified, not intractable, without status migrainosus Category: Medical Qualifiers: Migraine type: without aura Status migrainosus presence: without status migrainosus Intractability: not intractable Qualified Code(s): G43.009 - Migraine without aura, not intractable, without status migrainosus (3) Anxiety and depression: Code(s): F41.9 - Anxiety disorder, unspecified; F32.A - Depression, unspecified Category: Medical (4) Hidradenitis suppurativa of left axilla: Code(s): L73.2 - Hidradenitis suppurativa Category: Medical (5) Obesity (BMI 30-39.9): Code(s): E66.9 - Obesity, unspecified Category: Medical (6) Restless leg syndrome: Code(s): G25.81 - Restless legs syndrome Category: Medical (7) Anemia: Code(s): D64.9 - Anemia, unspecified Category: Medical Qualifiers: Anemia type: unspecified type Qualified Code(s): D64.9 - Anemia, unspecified Orders: Orders Influenza [id number] Immunization Today Z23 - Encounter for immunization Medications: Changed From Zepbound (tirzepatide (weight loss)) 7.5 mg (0.5 mL) subcut QWEEK 2 mL 1RF NS D64.9 - Anemia, unspecified, E66.9 - Obesity, unspecified, E78.2 - Mixed hyperlipidemia, F32.A - Depression, unspecified, F41.9 - Anxiety disorder, unspecified, G25.81 - Restless legs syndrome, G43.009 - Migraine without aura, not intractable, without status migrainosus, L73.2 - Hidradenitis suppurativa To Zepbound (tirzepatide (weight loss)) 7.5 mg (0.5 mL) subcut QWEEK 6 mL 0RF 3 months NS D64.9 - Anemia, unspecified, E66.9 - Obesity, unspecified, E78.2 - Mixed hyperlipidemia, F32.A - Depression, unspecified, F41.9 - Anxiety disorder, unspecified, G25.81 - Restless legs syndrome, G43.009 - Migraine without aura, not intractable, without status migrainosus, L73.2 - Hidradenitis suppurativa
== END 2024-12-25 12:10 | disposition home or self-care (01) ==
LOC: HO.HMCC 11:27
PROVIDERS: PCP Internal Medicine; Visit Provider Internal Medicine
DX: Z23 Encounter for immunization (principal)

== ENCOUNTER → 2024-12-25 11:26 | Outpatient (BNVA) | payer OTHER, SELFPAY | PROVIDERS: PCP Internal Medicine; Visit Provider Internal Medicine | DX: Z00.01 Encounter for general adult medical examination with abnormal findings (principal); E66.9 Obesity, unspecified; G25.81 Restless legs syndrome; F41.9 Anxiety disorder, unspecified; F32.A Depression, unspecified; G43.909 Migraine, unspecified, not intractable, without status migrainosus; E78.2 Mixed hyperlipidemia; G43.009 Migraine without aura, not intractable, without status migrainosus; L73.2 Hidradenitis suppurativa; D64.9 Anemia, unspecified; Z23 Encounter for immunization; Z68.34 Body mass index [BMI] 34.0-34.9, adult; Z79.899 Other long term (current) drug therapy | CPT/HCPCS: 90471; 90656; 96127 ==